=== PATIENT | male | born 1985 | race Caucasian/White ===

== ENCOUNTER 2021-10-13 04:25 | Emergency (ER) | payer MEDICAID ==
[~2021-10-13] VITALS: Ht 177.8 cm; Wt 102.0 kg
[2021-10-13 04:35] VITALS: BP 113/64
[2021-10-13] MEDS ORDERED: IBUPROFEN 600MG TABLET PO STA (05:11)
[2021-10-13] MEDS ORDERED: NAPR-681 PO (06:15)
[2021-10-13] MEDS ORDERED: CEPH500T PO (06:15)
[2021-10-13] MEDS ORDERED: CIPR1DRO2 LEFT EAR (06:15)
== END 2021-10-13 06:35 | disposition home or self-care (01) ==
LOC: ER 04:25
DX: H60.91 Unspecified otitis externa, right ear (principal); H61.21 Impacted cerumen, right ear
CPT/HCPCS: 99283

== ENCOUNTER 2022-02-08 16:26 | Emergency (ER) | payer MEDICAID ==
[~2022-02-08] VITALS: Ht 172.7 cm; Wt 103.0 kg
[~2022-02-08 16:26] MED LIST: CEPH500T PO; CIPR1DRO2 LEFT EAR; NAPR-681 PO
[2022-02-08] MEDS ORDERED: CEFTRIAXONE SODIUM 1 G/VIAL IM ONE (18:15)
[2022-02-08] MEDS ORDERED: LIDOCAINE HCL 1% 20ML VIAL (Pyxis) INJ INFIL ONE (18:15)
[2022-02-08] MEDS ORDERED: HYDROCODONE/ACETAMINOPHEN 5/325MG TABLET PO ONE (18:15)
[2022-02-08] MEDS ORDERED: AMOX1TAB16 MT (18:59)
[2022-02-08] MEDS ORDERED: CIPHCO EACH EAR (18:59)
[2022-02-08] MEDS ORDERED: TRAM50TA3 MT (18:59)
[2022-02-08] MEDS ORDERED: IBUP-2030 MT (18:59)
[2022-02-08 20:00] VITALS: BP 117/74
== END 2022-02-08 20:12 | disposition home or self-care (01) ==
LOC: ER 16:26
DX: H66.93 Otitis media, unspecified, bilateral (principal); H60.93 Unspecified otitis externa, bilateral
CPT/HCPCS: 96372; 99283; J0696